=== PATIENT | female | born 1935 | race Asian ===

== ENCOUNTER → 2017-02-03 | Outpatient (CLI) | payer MEDICARE, OTHER ==
[~2017-02-03] VITALS: Ht 134.6 cm; Wt 60.5 kg
[~2017-02-03] MED LIST: BENZ-26 PO; FLUT16H NASAL; FLUT1BLS PO
[2017-02-03 14:27] VITALS: BP 134/67
== END | disposition home or self-care (01) ==
LOC: SRCNTR 14:04
PROVIDERS: ATTEND Internal Medicine Critical Care Medicine
DX: I10 Essential (primary) hypertension (principal); R05 Cough; E78.5 Hyperlipidemia, unspecified; J01.90 Acute sinusitis, unspecified; K21.9 Gastro-esophageal reflux disease without esophagitis
CPT/HCPCS: G0463

== ENCOUNTER → 2017-05-06 | Outpatient (CLI) | payer MEDICARE, OTHER ==
[~2017-05-06] VITALS: Ht 134.6 cm; Wt 60.0 kg
[2017-05-06 10:29] VITALS: BP 129/68
== END | disposition home or self-care (01) ==
LOC: SRCNTR 10:08
PROVIDERS: ATTEND Internal Medicine Critical Care Medicine
DX: J44.9 Chronic obstructive pulmonary disease, unspecified (principal); R05 Cough; K21.9 Gastro-esophageal reflux disease without esophagitis; I10 Essential (primary) hypertension; E78.5 Hyperlipidemia, unspecified; J01.90 Acute sinusitis, unspecified
CPT/HCPCS: G0463

== ENCOUNTER → 2017-07-24 | Outpatient (CLI) | payer MEDICARE, OTHER | END | disposition home or self-care (01) | LOC: RADPV 08:40 | PROVIDERS: ATTEND Internal Medicine Critical Care Medicine | DX: I70.0 Atherosclerosis of aorta (principal); J44.9 Chronic obstructive pulmonary disease, unspecified | CPT/HCPCS: 71020 ==

== ENCOUNTER → 2017-08-07 | Outpatient (CLI) | payer MEDICARE, OTHER ==
[~2017-08-07] VITALS: Ht 134.6 cm; Wt 61.0 kg
[~2017-08-07] MED LIST changes: +ACET-784 PO
[2017-08-07 11:14] VITALS: BP 139/67
== END | disposition home or self-care (01) ==
LOC: SRCNTR 11:04
PROVIDERS: ATTEND Internal Medicine Critical Care Medicine
DX: I10 Essential (primary) hypertension (principal); K21.9 Gastro-esophageal reflux disease without esophagitis; E78.5 Hyperlipidemia, unspecified; J01.90 Acute sinusitis, unspecified
CPT/HCPCS: G0463

== ENCOUNTER → 2017-11-13 | Outpatient (CLI) | payer MEDICARE, OTHER ==
[~2017-11-13] VITALS: Ht 134.6 cm; Wt 61.0 kg
[~2017-11-13] MED LIST changes: -BENZ-26 PO; +BENZ-51 PO
[2017-11-13 09:46] VITALS: BP 143/77
== END | disposition home or self-care (01) ==
LOC: SRCNTR 09:29
PROVIDERS: ATTEND Internal Medicine Critical Care Medicine
DX: J01.90 Acute sinusitis, unspecified (principal); I10 Essential (primary) hypertension; K21.9 Gastro-esophageal reflux disease without esophagitis; E78.5 Hyperlipidemia, unspecified
CPT/HCPCS: G0463

== ENCOUNTER → 2018-01-12 | Outpatient (CLI) | payer MEDICARE, OTHER | END | disposition home or self-care (01) | LOC: RADPV 08:12 | PROVIDERS: ATTEND Internal Medicine Critical Care Medicine | DX: M51.36 Other intervertebral disc degeneration, lumbar region (principal) | CPT/HCPCS: 72100 ==

== ENCOUNTER → 2018-02-19 | Outpatient (CLI) | payer MEDICARE, OTHER ==
[~2018-02-19] VITALS: Ht 134.6 cm; Wt 61.0 kg
[2018-02-19 11:04] VITALS: BP 135/83
== END | disposition home or self-care (01) ==
LOC: SRCNTR 10:54
PROVIDERS: ATTEND Internal Medicine Critical Care Medicine
DX: J01.90 Acute sinusitis, unspecified (principal); K21.9 Gastro-esophageal reflux disease without esophagitis; I10 Essential (primary) hypertension; E78.5 Hyperlipidemia, unspecified
CPT/HCPCS: G0463

== ENCOUNTER 2019-07-12 15:59 | Emergency (ER) | payer MEDICARE, OTHER ==
[~2019-07-12] VITALS: Ht 147.3 cm; Wt 63.6 kg
[2019-07-12] MEDS ORDERED: ValACYclovir HCL 500 MG TABLET PO ONE (16:45)
[2019-07-12] MEDS ORDERED: ACETAMINOPHEN 500 MG TABLET PO ONE (16:45)
[2019-07-12 17:12] VITALS: BP 147/74
== END 2019-07-12 17:40 | disposition home or self-care (01) ==
LOC: EMS 16:00
DX: B02.9 Zoster without complications (principal); I10 Essential (primary) hypertension; E78.00 Pure hypercholesterolemia, unspecified

== ENCOUNTER 2019-07-17 16:00 | Emergency (ER) | payer MEDICARE, OTHER ==
[~2019-07-17] VITALS: Ht 137.2 cm; Wt 63.6 kg
[2019-07-17] MEDS ORDERED: ATOR20TA86 PO (16:06)
[2019-07-17] MEDS ORDERED: LOSA50TA64 PO (16:06)
[2019-07-17] MEDS ORDERED: AMLO10TA7 PO (16:06)
[2019-07-17] MEDS ORDERED: VALA500T38 PO (16:06)
[2019-07-17] MEDS ORDERED: TraMADol HCL 50 MG TABLET PO ONE (16:45)
[2019-07-17] MEDS ORDERED: GABAPENTIN 100 MG CAPSULE PO ONE (16:45)
[2019-07-17 18:02] VITALS: BP 136/83
== END 2019-07-17 18:13 | disposition home or self-care (01) ==
LOC: EMS 16:03
DX: B02.23 Postherpetic polyneuropathy (principal); E78.00 Pure hypercholesterolemia, unspecified; I10 Essential (primary) hypertension

== ENCOUNTER 2020-11-01 13:50 | Emergency (ER) | payer MEDICARE, OTHER ==
[~2020-11-01] VITALS: Ht 144.8 cm; Wt 68.2 kg
[~2020-11-01 13:50] MED LIST changes: +AMLO-258 PO; +ATOR20TA86 PO; -BENZ-51 PO; +LOSA50TA37 PO; +VALA500T42 PO
[2020-11-01 14:27] LABS: BASOPHILS % (AUTO) 0.5 % (0.0-2.0); EOSINOPHILS % (AUTO) 4.7 % (1.0-6.0); HEMATOCRIT 38.3 % (36-46); HEMOGLOBIN 12.7 g/dL (12.0-16.0); LYMPHOCYTES # (AUTO) 2.8 K/uL (1.0-4.8); LYMPHOCYTES % (AUTO) 27.5 % (22.0-44.0); MEAN CORPUSCULAR HEMOGLOBIN 30.6 pg (26.0-34.0); MEAN CORPUSCULAR HGB CONC 33.1 G/dL (31.0-37.0); MEAN CORPUSCULAR VOLUME 92 fL (80-100); MONOCYTES # (AUTO) 0.7 K/uL (0.1-1.0); MONOCYTES % (AUTO) 7.1 % (2.0-9.0); NEUTROPHILS # (AUTO) 6.2 K/uL (1.8-7.7); NEUTROPHILS % (AUTO) 60.2 % (40.0-70.0); PLATELET COUNT (AUTO) 261 K/uL (150-450); RED BLOOD CELL COUNT(AUTO) 4.15 MIL/uL (4.00-5.20); RED CELL DISTRIBUTION WIDTH 14.7 % (11.5-14.5)
[2020-11-01 14:36] LABS: CREATININE 1.1 mg/dL (0.60-1.30); POTASSIUM 3.9 mmol/L (3.5-5.1)
[2020-11-01 14:42] LABS: ALBUMIN 3.5 g/dL (3.4-5.0); BILIRUBIN,TOTAL 0.3 mg/dL (0.1-1.0); TOTAL PROTEIN, SERUM 8.4 g/dL (6.4-8.2)
[2020-11-01 15:56] LABS: INFLUENZA TYPE A NEGATIVE FOR TYPE A (NEGATIVE); INFLUENZA TYPE B NEGATIVE FOR TYPE B (NEGATIVE)
[2020-11-01 16:08] VITALS: BP 134/97
== END 2020-11-01 16:15 | disposition home or self-care (01) ==
LOC: EMS 13:56
DX: R05 Cough (principal); Z20.828 Contact with and (suspected) exposure to other viral communicable diseases; I10 Essential (primary) hypertension; E78.00 Pure hypercholesterolemia, unspecified
CPT/HCPCS: 36415; 71045; 80053; 83880; 85025; 87426; 87804; 99284; U0003